=== PATIENT | female | born 1990 | race African-American/Black ===

== ENCOUNTER 2017-12-17 10:49 | Inpatient (IN) | payer OTHER ==
[2017-12-17] MEDS: LACTATED RINGER'S 500 ML IV ×4 (14:59→23:17)
[2017-12-17 20:53] LABS: ADD UMIC NO; UR ASCORBIC ACID NEGATIVE (NEGATIVE); UR BILIRUBIN (Dip) NEGATIVE (NEGATIVE); UR BLOOD (Dip) NEGATIVE (NEGATIVE); UR CLARITY CLEAR (CLEAR); UR COLOR YELLOW (YELLOW); UR GLUCOSE (Dip) 1+ mg/dL (NEGATIVE); UR KETONES (Dip) NEGATIVE (NEGATIVE); UR LEUKOCYTE ESTERASE (Dip) NEGATIVE Leu/ul (NEGATIVE); UR NITRITE (Dip) NEGATIVE (NEGATIVE); UR SPECIFIC GRAVITY (Dip) 1.013 (1.003-1.030); UR TOTAL PROTEIN (Dip) NEGATIVE (NEGATIVE); UR UROBILINOGEN (Dip) NEGATIVE (NEGATIVE)
[2017-12-18] MEDS: FERROUS SULFATE 325MG TAB PO (00:59)
[2017-12-18] MEDS: LACTATED RINGER'S 500 ML IV (06:06)
== END 2017-12-18 14:15 | disposition home or self-care (01) | DRG 782 ==
LOC: OBT 10:49 → L-D 10:49 → OBT 14:26 → L-D 14:15
DX: O36.8130 Decreased fetal movements, third trimester, not applicable or unspecified (principal); Z3A.28 28 weeks gestation of pregnancy
CPT/HCPCS: 76818; 81003

== ENCOUNTER 2018-01-16 15:31 | Outpatient (CLI) | payer OTHER | END 2018-01-16 16:20 | disposition home or self-care (01) | LOC: OBT 15:31 → L-D 15:36 → OBT 16:20 | DX: O98.513 Other viral diseases complicating pregnancy, third trimester (principal); Z3A.32 32 weeks gestation of pregnancy; J06.9 Acute upper respiratory infection, unspecified | CPT/HCPCS: Z7500 ==

== ENCOUNTER 2018-01-16 16:24 | Emergency (ER) | payer OTHER | END 2018-01-16 17:26 | disposition home or self-care (01) | LOC: E/R 16:24 | DX: O99.513 Diseases of the respiratory system complicating pregnancy, third trimester (principal); J00 Acute nasopharyngitis [common cold]; Z3A.33 33 weeks gestation of pregnancy | CPT/HCPCS: 99283; Z7502 ==

== ENCOUNTER 2018-03-08 22:26 | Inpatient (IN) | payer OTHER ==
[2018-03-09] MEDS ORDERED: BUTORPHANOL 2 MG INJ IV (01:30)
[2018-03-09] MEDS ORDERED: CARBOPROST 250 MCG INJ IM ×2 (01:30→14:00)
[2018-03-09] MEDS ORDERED: IBUPROFEN 600 MG TAB PO (01:30)
[2018-03-09] MEDS ORDERED: OXYTOCIN 30 UNITS/LR 500 ML IV ×3 (01:30)
[2018-03-09] MEDS ORDERED: METHYLERGONOVINE 0.2 MG INJ IM (01:30)
[2018-03-09] MEDS ORDERED: LIDOCAINE 1% (MPF) 30 ML INJ INJ (01:30)
[2018-03-09] MEDS ORDERED: MISOPROSTOL 200 MCG TAB PR ×2 (01:30→14:00)
[2018-03-09] MEDS: LACTATED RINGER'S 1,000 ML IV ×3 (02:04→09:27)
[2018-03-09 02:50] LABS: ADD MAN DIFF? NO
[2018-03-09 02:54] LABS: WHITE BLOOD COUNT 11.3 10^3/ul (4.8-10.8)
[2018-03-09 02:54] LABS: BASOPHILS % 0.3 % (0.0-2.0); EOSINOPHILS # 0.1 10^3/ul (0.0-0.5); EOSINOPHILS % 0.8 % (0.0-7.0); HEMATOCRIT 35.5 % (37.0-47.0); HEMOGLOBIN 12.4 g/dl (12.0-16.0); LYMPHOCYTES # 1.8 10^3/ul (0.8-2.9); LYMPHOCYTES % 15.6 % (15.0-51.0); MEAN CORPUSCULAR HEMOGLOBIN 28.1 pg (29.0-33.0); MEAN CORPUSCULAR HGB CONC 34.9 g/dl (32.0-37.0); MEAN CORPUSCULAR VOLUME 80.3 fl (82.0-101.0); MEAN PLATELET VOLUME 11.8 fl (7.4-10.4); MONOCYTE # 1.3 10^3/ul (0.3-0.9); MONOCYTES % 11.8 % (0.0-11.0); NEUTROPHILS % 70.7 % (39.0-77.0); NUCLEATED RED BLOOD CELLS% 0.3 /100WBC (0.0-0.0); PLATELET COUNT 144 10^3/UL (140-415); RED BLOOD COUNT 4.42 10^6/ul (4.20-5.40); RED CELL DISTRIBUTION WIDTH 14.4 % (11.5-14.5)
[2018-03-09] MEDS: AMPICILLIN 2 GM/NS (PMX) 100 ML IV (02:56)
[2018-03-09 03:12] LABS: INR 0.86; PROTIME 11.8 Sec (11.9-14.9); PT RATIO 0.9
[2018-03-09] MEDS ORDERED: FENTAnyl 2MCG/ML-ROPIV 0.2% 100 ML (03:33)
[2018-03-09 04:03] LABS: HEPATITIS B SURFACE ANTIGEN NEGATIVE (NEGATIVE)
[2018-03-09] MEDS ORDERED: NALOXONE (0.4 MG/ML) INJ IV (05:30)
[2018-03-09] MEDS ORDERED: DIPHENHYDRAMINE 50 MG INJ IV ×2 (05:30→14:00)
[2018-03-09] MEDS ORDERED: ONDANSETRON 4 MG INJ IV ×2 (05:30→14:00)
[2018-03-09] MEDS: AMPICILLIN 1 GM/NS (PMX) 50 ML IV ×2 (06:55→10:30)
[2018-03-09] MEDS: FENTAnyl 2MCG/ML-ROPIV 0.2% 100 ML BAG EPI (10:09)
[2018-03-09] MEDS: LACTATED RINGER'S 1,000 ML IV* ×2 (13:40→21:40)
[2018-03-09] MEDS ORDERED: DIBUCAINE 1% 30 GM OINT PR (14:00)
[2018-03-09] MEDS ORDERED: MINERAL OIL LIGHT 10 ML VIAL TOP (14:00)
[2018-03-09] MEDS ORDERED: ONDANSETRON 4 MG TAB PO (14:00)
[2018-03-09] MEDS ORDERED: LANOLIN 7 GM TUBE TOP (14:00)
[2018-03-09] MEDS ORDERED: DIPHENHYDRAMINE 25 MG CAP PO (14:00)
[2018-03-09] MEDS ORDERED: MAGNESIUM HYDROXIDE 30ML CUP PO (14:00)
[2018-03-09] MEDS ORDERED: ACETAMINOPHEN 325 MG TAB PO ×2 (14:00)
[2018-03-09] MEDS: OXYTOCIN 30 UNITS/LR 500 ML IV ×2 (14:00→16:08)
[2018-03-09] MEDS ORDERED: SENNA/DOCUSATE NA (8.6MG/50MG) TAB PO (14:00)
[2018-03-09] MEDS ORDERED: HYDROCODONE/APAP (5/325) TAB PO (14:00)
[2018-03-09] MEDS: METHYLERGONOVINE 0.2 MG INJ IM (14:16)
[2018-03-09 14:20] LABS: Arterial Cord Blood pCO2 41.7 mmHG (25-50); CBA COHb 1.6 %; CBA Oxygen Sat 76.4 mmHG; Cord Blood Arterial pO2 34.5 mmHG (15.0-45.0); Fraction OxyHgb Cord Arterial 74.3 %; MODE ROOM AIR; MetHgb Cord Arterial 1.1 %; Sample Type CBV; Site CORD
[2018-03-09 14:23] LABS: CBV Base Excess -6.5 mmol/L; CBV Oxygen Sat 60.5 mmHG; CBV Total Hemglobin 16.7 g/dl; Cord Blood Venous pO2 28.3 mmHG (15.0-45.0); Fraction OxyHgb Cord Venous 59.1 %; MODE ROOM AIR; MetHgb Cord Venous 1.3 %; Sample Type Blood venous; Site CORD
[2018-03-09] MEDS: IBUPROFEN 800 MG TAB PO ×2 (17:29→23:42)
[2018-03-09] MEDS: WITCH HAZEL/GLYCERIN PAD PR (17:30)
[2018-03-09] MEDS: BENZOCAINE 20% 56 ML SPRAY TOP (17:30)
[2018-03-09 23:15] LABS: RAPID PLASMA REAGIN NONREACTIVE (NR)
[2018-03-10] MEDS: LACTATED RINGER'S 1,000 ML IV* ×2 (05:39→13:40)
[2018-03-10] MEDS: IBUPROFEN 800 MG TAB PO ×4 (05:39→23:54)
[2018-03-10 09:42] LABS: ADD MAN DIFF? NO
[2018-03-10 09:49] LABS: ABNORMAL IP MESSAGE 1; BASOPHILS % 0.2 % (0.0-2.0); EOSINOPHILS # 0.2 10^3/ul (0.0-0.5); HEMATOCRIT 33.8 % (37.0-47.0); HEMOGLOBIN 11.7 g/dl (12.0-16.0); LYMPHOCYTES # 1.3 10^3/ul (0.8-2.9); LYMPHOCYTES % 7.4 % (15.0-51.0); MEAN CORPUSCULAR HEMOGLOBIN 27.9 pg (29.0-33.0); MEAN CORPUSCULAR HGB CONC 34.6 g/dl (32.0-37.0); MEAN CORPUSCULAR VOLUME 80.5 fl (82.0-101.0); MEAN PLATELET VOLUME 11.8 fl (7.4-10.4); MONOCYTE # 1.7 10^3/ul (0.3-0.9); MONOCYTES % 9.5 % (0.0-11.0); NEUTROPHIL # 14.7 10^3/ul (1.6-7.5); NEUTROPHILS % 81.2 % (39.0-77.0); PLATELET COUNT 137 10^3/UL (140-415); RED CELL DISTRIBUTION WIDTH 14.6 % (11.5-14.5)
[2018-03-10 09:49] LABS: WHITE BLOOD COUNT 18.1 10^3/ul (4.8-10.8)
[2018-03-10 09:54] LABS: POSITIVE DIFF @See below
[2018-03-10] MEDS: HYDROCODONE/APAP (5/325) TAB PO (10:14)
[2018-03-10] MEDS: CEPHALEXIN 500 MG CAP PO ×3 (12:59→23:54)
[2018-03-10] MEDS: BISACODYL (EC) 5 MG TAB PO (22:56)
[2018-03-11] MEDS: IBUPROFEN 800 MG TAB PO ×2 (06:12→12:41)
[2018-03-11] MEDS: CEPHALEXIN 500 MG CAP PO ×2 (06:12→12:41)
[2018-03-11] MEDS: MEASLES,MUMPS,RUBELLA VACCINE INJ SC* (08:26)
[2018-03-11] MEDS: VARICELLA VACCINE LIVE/PF 1,350 UNIT/0.5 ML ML SC* (09:00)
[2018-03-11 10:56] LABS: ADD MAN DIFF? NO
[2018-03-11 11:12] LABS: BASOPHILS % 0.2 % (0.0-2.0); EOSINOPHILS # 0.3 10^3/ul (0.0-0.5); EOSINOPHILS % 2.1 % (0.0-7.0); HEMATOCRIT 35.2 % (37.0-47.0); HEMOGLOBIN 12.1 g/dl (12.0-16.0); LYMPHOCYTES # 1.8 10^3/ul (0.8-2.9); MEAN CORPUSCULAR HEMOGLOBIN 27.8 pg (29.0-33.0); MEAN CORPUSCULAR HGB CONC 34.4 g/dl (32.0-37.0); MEAN CORPUSCULAR VOLUME 80.9 fl (82.0-101.0); MEAN PLATELET VOLUME 11.9 fl (7.4-10.4); MONOCYTE # 1.3 10^3/ul (0.3-0.9); MONOCYTES % 10.1 % (0.0-11.0); NEUTROPHIL # 9.2 10^3/ul (1.6-7.5); NEUTROPHILS % 73.1 % (39.0-77.0); PLATELET COUNT 157 10^3/UL (140-415); RED BLOOD COUNT 4.35 10^6/ul (4.20-5.40); RED CELL DISTRIBUTION WIDTH 14.6 % (11.5-14.5)
[2018-03-11 11:12] LABS: WHITE BLOOD COUNT 12.6 10^3/ul (4.8-10.8)
[2018-03-11] MEDS: DIPHTH/TET/ACEL PERTUSS (ADULT) 0.5 ML VIAL IM* (11:12)
== END 2018-03-11 17:45 | disposition home or self-care (01) | DRG 775 ==
LOC: OBT 22:26 → L-D 22:26 → PP1 03-09 16:30
PROVIDERS: Obstetrics & Gynecology
PROC: 10E0XZZ Delivery of Products of Conception, External Approach (ICD-10-PCS; principal; 2018-03-09)
PROC: 3E033VJ Introduction of Other Hormone into Peripheral Vein, Percutaneous Approach (ICD-10-PCS; 2018-03-09)
PROC: 0UQGXZZ Repair Vagina, External Approach (ICD-10-PCS; 2018-03-09)
DX: O48.0 Post-term pregnancy (principal); O71.4 Obstetric high vaginal laceration alone; Z3A.40 40 weeks gestation of pregnancy; Z37.0 Single live birth
CPT/HCPCS: 36415; 36600; 62319; 76816; 76818; 82803; 85025; 85610; 85730; 86592; 86850; 86900; 86901; 87086; 87340; 90715; 99464